=== PATIENT | male | born 2005 | race Caucasian/White ===

== ENCOUNTER → 2025-09-30 | Outpatient (CLI) | payer BC, SELFPAY ==
--- NOTE | 2025-09-30 14:20 | XR_ITS ---
Examination: Hand, left 3 views Technique: Hand AP, oblique, lateral 3 views Date and time of exam: September 30, 2025, 1458 hours INDICATION: Patient fell today with injury to the hand, hand pain. FINDINGS: Acute fracture through the base of the first metacarpal with mild offset at the fracture site Adequate bone density IMPRESSION: Acute fracture through the base of the first metacarpal
== END | disposition home or self-care (01) ==
DX: S62.232A Other displaced fracture of base of first metacarpal bone, left hand, initial encounter for closed fracture (principal); X58.XXXA Exposure to other specified factors, initial encounter
CPT/HCPCS: 73130